=== PATIENT | female | born 1980 | race Caucasian/White ===

== ENCOUNTER 2017-10-15 10:54 | Emergency (ER) | payer MEDICAID ==
[~2017-10-15] VITALS: Ht 167.6 cm; Wt 72.7 kg
[2017-10-15 10:56] VITALS: Ht 167.6 cm; Wt 72.7 kg
[2017-10-15] MEDS ORDERED: CELEXA10 MG PO (10:57)
[2017-10-15] MEDS ORDERED: ADDERALL 10 MG10 MG PO (10:57)
[2017-10-15] MEDS ORDERED: XANAX1 MG PO (10:57)
[2017-10-15] MEDS ORDERED: SOMA250 MG PO (10:58)
[2017-10-15] MEDS ORDERED: HYDROCODONE-APA1 TAB PO (10:58)
[2017-10-15 11:40] LABS: BASOPHILS 0.3 % (0-2); EOSINOPHILS 0.5 % (0-7); HEMATOCRIT 39.3 % (36.0-48.0); HEMOGLOBIN 13.1 g/dL (12-16); IMMATURE GRANULOCYTES 0.2 % (0-5); LYMPHOCYTES 12.1 % (15-50); MCH 29.1 pg (26.0-34.0); MCHC 33.3 g/dL (31.0-37.0); MCV 87.3 fL (80.0-100.0); MEAN PLATELET VOLUME 10.3 fL (7.4-10.4); MONOCYTES 7.3 % (2-11); NEUTROPHILS 79.6 % (40-80); PLATELET COUNT 242 10x3/uL (130-400); RDW 14.4 % (11.5-14.5)
[2017-10-15 11:57] LABS: ALBUMIN 3.8 g/dL (3.4-5.0); ALKALINE PHOSPHATASE 56 U/L (46-116); ALT (SGPT) 26 U/L (10-68); AMYLASE - SERUM 58 U/L (25-115); BILIRUBIN - TOTAL 0.44 mg/dL (0.2-1.3); CALC OSMOLALITY 278 mosm/kg (275-300); CALCIUM 8.7 mg/dL (8.5-10.1); CARBON DIOXIDE 24.4 mmol/L (21.0-32.0); CHLORIDE - SERUM 107 mmol/L (98-107); CREATININE - SERUM 0.7 mg/dL (0.6-1.3); GLUCOSE 108 mg/dL (74-106); LIPASE 127 U/L (73-393); POTASSIUM - SERUM 3.2 mmol/L (3.5-5.1); PROTEIN - SERUM 7.1 g/dL (6.4-8.2); SODIUM 140 mmol/L (136-145); UREA NITROGEN 11 mg/dL (7-18); eGFR NON AFRICAN AMERICAN > 90 mL/min (90-120)
[2017-10-15 13:22] LABS: HCG SERUM NEGATIVE (NEGATIVE)
[2017-10-15 14:03] LABS: APPEARANCE CLEAR (CLEAR); BILIRUBIN NEGATIVE (NEGATIVE); COLOR STRAW (YELLOW); GLUCOSE 50 mg/dL (NEGATIVE); KETONE MODERATE mg/dL (NEGATIVE); NITRITE NEGATIVE (NEGATIVE); PROTEIN NEGATIVE (NEGATIVE); UROBILINOGEN NORMAL (NORMAL)
[2017-10-15 14:36] LABS: UDS - AMPHET NEGATIVE QUAL (NEGATIVE); UDS - BARB NEGATIVE QUAL (NEGATIVE); UDS - BENZO POSITIVE QUAL (NEGATIVE); UDS - COCAINE NEGATIVE QUAL (NEGATIVE); UDS - OPIATE POSITIVE QUAL (NEGATIVE); UDS - PCP NEGATIVE QUAL (NEGATIVE); UDS - THC POSITIVE QUAL (NEGATIVE)
[2017-10-15] MEDS ORDERED: REGLAN10 MG PO (14:47)
[2017-10-15] MEDS ORDERED: PEPCID40 MG PO (14:47)
[2017-10-15 15:18] VITALS: BP 135/73
== END 2017-10-15 15:18 | disposition home or self-care (01) ==
LOC: D.ER 10:54
PROVIDERS: Family Medicine
DX: R10.9 Unspecified abdominal pain (principal); E87.6 Hypokalemia; R11.0 Nausea; R19.7 Diarrhea, unspecified

== ENCOUNTER 2018-06-24 01:33 | Emergency (ER) | payer MEDICAID ==
[~2018-06-24] VITALS: Ht 167.6 cm; Wt 77.3 kg
[~2018-06-24 01:33] MED LIST: ADDERALL 10 MG10 MG PO; CELEXA10 MG PO; HYDROCODONE-APA1 TAB PO; PEPCID40 MG PO; REGLAN10 MG PO; SOMA250 MG PO; XANAX1 MG PO
[2018-06-24 01:35] VITALS: Ht 167.6 cm; Wt 77.3 kg
[2018-06-24 02:59] LABS: APPEARANCE CLEAR (CLEAR); BILIRUBIN NEGATIVE (NEGATIVE); COLOR YELLOW (YELLOW); GLUCOSE NEGATIVE (NEGATIVE); KETONE NEGATIVE (NEGATIVE); NITRITE NEGATIVE (NEGATIVE); PROTEIN NEGATIVE (NEGATIVE); UROBILINOGEN NORMAL (NORMAL)
[2018-06-24] MEDS ORDERED: STERAPRED DS 1010 MG PO (03:54)
[2018-06-24 04:20] VITALS: BP 122/68
== END 2018-06-24 04:20 | disposition home or self-care (01) ==
LOC: D.ER 01:33
PROVIDERS: Family Medicine
DX: M54.30 Sciatica, unspecified side (principal)

== ENCOUNTER 2019-03-03 20:59 | Emergency (ER) | payer MEDICAID ==
[~2019-03-03] VITALS: Ht 167.6 cm; Wt 68.2 kg
[~2019-03-03 20:59] MED LIST changes: +STERAPRED DS 1010 MG PO
[2019-03-03 21:06] VITALS: Ht 167.6 cm; Wt 68.2 kg
[2019-03-03] MEDS ORDERED: CELEXA40 MG PO (21:07)
[2019-03-03] MEDS ORDERED: ADDERALL 20 MG20 M1 PO (21:07)
[2019-03-03] MEDS ORDERED: XANAX2 MG PO (21:08)
[2019-03-03] MEDS ORDERED: CARAFATE1 G PO (21:08)
[2019-03-03] MEDS ORDERED: PINDOLOL5 MG PO (21:09)
[2019-03-03] MEDS ORDERED: GABAPENTIN100 MG PO (21:09)
[2019-03-03] MEDS ORDERED: REXULTI1 MG PO (21:09)
[2019-03-03] MEDS ORDERED: SMZ-TMP DS 800-1 TAB PO (21:10)
[2019-03-03] MEDS ORDERED: TORADOL10 MG PO (22:09)
[2019-03-03 22:25] VITALS: BP 140/87
== END 2019-03-03 22:25 | disposition home or self-care (01) ==
LOC: D.ER 20:59
DX: S51.011A Laceration without foreign body of right elbow, initial encounter (principal); X58.XXXA Exposure to other specified factors, initial encounter